=== PATIENT | male | born 1935 | race African-American/Black ===

== ENCOUNTER → 2020-07-05 10:53 | Outpatient (BNVA) | payer MEDICARE, OTHER, SELFPAY | PROVIDERS: PCP Internal Medicine; Visit Provider Urology | DX: N52.01 Erectile dysfunction due to arterial insufficiency (principal); C61 Malignant neoplasm of prostate | CPT/HCPCS: 99212 ==

== ENCOUNTER → 2021-08-09 13:21 | Outpatient (BNVA) | payer MEDICARE, OTHER, SELFPAY | PROVIDERS: PCP Internal Medicine; Visit Provider Urology | DX: N52.01 Erectile dysfunction due to arterial insufficiency (principal); C61 Malignant neoplasm of prostate | CPT/HCPCS: Q3014 ==

== ENCOUNTER → 2022-08-14 08:34 | Outpatient (BNVA) | payer MEDICARE, OTHER, SELFPAY | PROVIDERS: PCP Internal Medicine; Visit Provider Urology | DX: N52.01 Erectile dysfunction due to arterial insufficiency (principal); C61 Malignant neoplasm of prostate | CPT/HCPCS: 99212 ==

== ENCOUNTER 2023-11-03 08:10 | Outpatient (AMB) | payer MEDICARE, OTHER, SELFPAY ==
--- NOTE | 2023-11-03 08:11 | MHC.OFFVIS ---
Intake Visit Reasons: 1Y PSA(set) Intake Note: Patient is Present for Telephone Follow Up PSA Urology Med: Sildenafil Antibiotic Allergy: None Blood Thinner: None Allergies No Known Allergies Allergy (Verified 11/03/23 08:11) Medication List - Last Reconciled 11/03/23 by Dmitri Cowan MD amlodipine 5 mg PO DAILY blood sugar diagnostic (OneTouch Ultra Test strips) As directed brimonidine-timolol 0.2-0.5 % 1 drp ophthalmic (eye) BID brinzolamide 1% 0 drps ophthalmic (eye) glyburide 2.5 mg PO DAILY hydrochlorothiazide 25 mg PO DAILY lancets As directed lisinopril 40 mg PO DAILY metformin 1,000 mg PO BID metoprolol succinate ER 100 mg PO DAILY rosuvastatin 5 mg PO DAILY sildenafil 100 mg PO DAILY 30 days HPI Comments Details: Urbano is a pleasant male. He is a patient of Dr. Cruz. He is seen for the following urologic conditions - prostate cancer - Erectile dysfunction Telemedicine Evaluation 15 min Consultation [employer] Samantha Video Twelve month follow-up Continue stable PSA Talked today about his grandmother who had been born in 1880 He is a retired respiratory therapist Erectile dysfunction setting of diabetes Response to on demand sildenafil 100 mg Comorbidities include diabetes, hypertension, dyslipidemia Prostate cancer: Radical prostatectomy 1998 PSA stable Good control of urination Prostate cancer was diagnosed 1998. Diagnosis was reached by needle biopsy, for elevated PSA. The [place] grade is 3+3 = 6. TNM Classification of Malignant Tumours (TNM) T1c. The [place] (NCCN) risk category is Low Risk (PSA< 10, Gl < 7, T1c). Initial therapy included Primary treatment, Prostatectomy (RRP/Robotic), Additional treatment, Observation. Recent labs included a PSA (prostate-specific antigen) November 2014 , < 0.1, 06/24 <0.1, 07/27 <0.1, 07/28 <0.1, 08/29 < 0.1 Associated conditions erectile dysfunction Yes Erectile BERHANE Score 23 hematuria No hot flashes No incontinence Yes Stress incontinence occasional, does not require pad protection Therapeutic plan: Continue with PSA surveillance and ED medications Review of Systems Const All systems reviewed & are unremarkable except as noted in HPI and below Reports no additional complaints Resp Reports no additional complaints GI Reports no additional complaints Reports as per HPI Musc Reports no additional complaints Physical Exam Telemedicine evaluation Appropriate responses Regular breathing rate and rhythm HEENT Head: Yes normal to inspection Ears: hearing grossly normal bilaterally Eyes General: appearance normal, both eyes and all related structures Neck Neck: Yes normal visual inspection Chest Chest palpation & inspection: normal inspection of the chest Resp Effort & Inspection: normal respiratory effort and able to speak in complete sentences Telehealth Telehealth Location of provider rendering services: practice address Location of patient: address on file Patient Identification confirmed using: Name, : Yes Telehealth method: voice only Patient verbally consented to treatment: Yes Patient verbally consented to billing insurance company: Yes Patient informed of any privacy concerns related to visit: Yes Assessment & Plan Assessment & Plan (1) Prostate cancer: Code(s): C61 - Malignant neoplasm of prostate Category: Medical (2) Erectile dysfunction due to arterial insufficiency: Code(s): N52.01 - Erectile dysfunction due to arterial insufficiency Category: Medical Plan One year follow-up PSA Orders: Orders Prostate Specific Antigen 364 Days C61 - Malignant neoplasm of prostate Patient Instructions: Imaging studies, laboratory and physical exam results were discussed and reviewed in detail. No major barriers to patient understanding were identified. An opportunity to ask questions regarding the treatment plan was provided. All questions were answered. The patient expressed understanding and agreement with the above treatment plan. The patient is aware they should contact our office by phone for worsening of their current condition or the appearance of new urologic symptoms. Compliance is encouraged with any medications and followup testing that is ordered. It is a privilege to participate in the urologic care of your patient. If you have any questions or concerns regarding treatment for the above conditions, or other urologic issues, please do not hesitate to contact me. The office telephone contact is [phone]. This note is constructed using voice recognition software. While every effort has been made to ensure accuracy slice plug cutter operator errors may have been included. Yours sincerely, Dr Dmitri Cowan MD, [facility] - Urology Providers of Expert, Compassionate Care for the Genitourinary System Coding Level of Care Code Tele Est Pt Level 4 (88122) Diagnoses Prostate cancer C61 Erectile dysfunction due to arterial insufficiency N52.01
== END 2023-11-03 10:06 | disposition home or self-care (01) ==
LOC: HO.HUSH 08:10
PROVIDERS: PCP Internal Medicine; Visit Provider Urology
DX: C61 Malignant neoplasm of prostate (principal); N52.01 Erectile dysfunction due to arterial insufficiency
CPT/HCPCS: 99442

== ENCOUNTER → 2023-11-03 08:10 | Outpatient (BNVA) | payer MEDICARE, OTHER, SELFPAY | PROVIDERS: PCP Internal Medicine; Visit Provider Urology ==